=== PATIENT | female | born 1965 | race Caucasian/White ===

== ENCOUNTER → 2019-04-25 | Outpatient (CLI) | payer OTHER ==
--- NOTE | 2019-04-25 15:55 | XR ---
EXAMINATION TYPE: XR knee limited LT DATE OF EXAM: 04/25/2019 CLINICAL HISTORY: Pain. TECHNIQUE: Frontal and lateral views of the left knee are obtained. COMPARISON: None. FINDINGS: There is no acute fracture/dislocation evident in left knee. Mild to moderate tricompartme nt joint space loss with mild patellofemoral compartment spurring. The overlying soft tissue appears unremarkable. IMPRESSION: As above.
--- NOTE | 2019-04-25 15:56 | XR ---
EXAMINATION TYPE: XR lumbosacral spine min 4V DATE OF EXAM: 04/25/2019 CLINICAL HISTORY: Pain. TECHNIQUE: Frontal, lateral, and oblique images of the lumbar spine are obtained. COMPARISON: None FINDINGS: There are 5 lumbar type vertebral bodies identified. The lumbar spine shows slight grade 1 retrolisthesis L4 on L5 without evidence of acute fracture or dislocation. Vertebral body heights a re within normal limits. Mild disc space narrowing L4-L5 level is seen. The oblique images appear w ithin normal limits. Mild to moderate multilevel anterior and lateral spurring. Cholecystectomy clips noted in overlying soft tissue.. IMPRESSION: As above.
== END | disposition home or self-care (01) ==
LOC: RADXRMAIN 14:54
PROVIDERS: ATTEND Family Medicine
DX: M99.73 Connective tissue and disc stenosis of intervertebral foramina of lumbar region (principal); M43.16 Spondylolisthesis, lumbar region; M25.862 Other specified joint disorders, left knee
CPT/HCPCS: 72110

== ENCOUNTER → 2019-08-10 | Outpatient (CLI) | payer BC ==
--- NOTE | 2019-08-10 19:33 | CT ---
EXAMINATION TYPE: CT abdomen pelvis w con DATE OF EXAM: 08/10/2019 COMPARISON: None HISTORY: Right lower quadrant and epigastric pain. CT DLP: 1856 mGycm Automated exposure control for dose reduction was used. CONTRAST: Performed with IV Contrast, patient injected with 100ml mL of Isovue 300. Multiple axial sections were obtained from the diaphragm to the floor the pelvis with oral and intrav enous contrast. Lung bases are clear. There is no pleural effusion. Heart size is normal. There is small hiatal herni a. The remainder of the stomach appears normal. Liver spleen pancreas appear normal. There are clips from cholecystectomy. The bile ducts are not dilated. There is no adrenal mass. There is no evidence of pancreatic mass. There is normal contrast opacification of the kidneys. There is no hydronephrosis. Ureters are not di lated. Bladder distends smoothly. There is no inguinal hernia. There is hysterectomy. There is no mes enteric edema. There is no ascites or free air. Appendix appears normal. There is no sign of a bowel obstruction. Lumbar vertebra have normal alignment. There is narrowing at L4-5 disc with vacuum disc. There is no compression fracture. Bony pelvis is intact. IMPRESSION: Negative CT scan abdomen and pelvis. No evidence of appendicitis.No renal stone or obstruction. Velia l appendix.
== END | disposition home or self-care (01) ==
LOC: RADCTMAIN 16:41
PROVIDERS: ATTEND Physician Assistant
DX: R10.31 Right lower quadrant pain (principal)
CPT/HCPCS: 74177; Q9967

== ENCOUNTER → 2020-06-03 | Outpatient (CLI) | payer BC | END | disposition home or self-care (01) | LOC: LABPAT 07:36 | PROVIDERS: ATTEND Orthopaedic Surgery Orthopaedic Surgery of the Spine | DX: Z01.812 Encounter for preprocedural laboratory examination (principal) | CPT/HCPCS: 87070 ==

== ENCOUNTER 2020-06-12 06:43 | Inpatient (IN) | payer BC ==
[2020-06-07 16:24] VITALS: BMI 33.0
[~2020-06-12 06:43] MED LIST: ceFAZolin 1,000 MG in SODIUM CHLORIDE 0.9% IRRIGATIO 1,000 ML IRRIGATION ONE
[2020-06-12] MEDS ORDERED: LACTATED RINGERS 1,000 ML IV ONE ×3 (07:34→11:47)
[2020-06-12] MEDS ORDERED: ONDANSETRON 4 MG/2 ML VIAL IVP ONE (07:34)
[2020-06-12 07:37] LABS: Glucose,Whole Blood 125 mg/dL (75-99)
[2020-06-12] MEDS ORDERED: ONDANSETRON 4 MG/2 ML VIAL ONE ×2 (07:40→08:00)
[2020-06-12] MEDS ORDERED: HYDROmorphone (PF) 1 MG/ML ONE (08:00)
[2020-06-12] MEDS ORDERED: fentaNYL (PF) 50 MCG/ML 2 ML AMP ONE (08:00)
[2020-06-12] MEDS ORDERED: WATER FOR INJECTION, STERILE 10 ML VIAL IV ONE (08:00)
[2020-06-12] MEDS ORDERED: KETAMINE 10 MG/ML 20 ML VIAL ONE (08:00)
[2020-06-12] MEDS ORDERED: NEOSTIGMINE 1 MG/ML 10 ML VIAL ONE (08:00)
[2020-06-12] MEDS ORDERED: ePHEDrine SULFATE/0.9% NACL/PF 50 MG/5 ML SYRINGE IV ONE (08:00)
[2020-06-12] MEDS ORDERED: PROPOFOL 10 MG/ML 20 ML VIAL IV ONE (08:00)
[2020-06-12] MEDS ORDERED: MIDAZOLAM 2 MG/2 ML VIAL ONE (08:00)
[2020-06-12] MEDS ORDERED: HEPARIN SODIUM,PORCINE 10,000 UNIT/ML 1 ML VIAL ONE (08:00)
[2020-06-12] MEDS ORDERED: SODIUM CHLORIDE 0.9% IRRIG 1,000 ML BTL IRRIGATION ONE (08:00)
[2020-06-12] MEDS ORDERED: ROCURONIUM 10 MG/ML (10 ML VIAL) IV ONE (08:00)
[2020-06-12] MEDS ORDERED: PHENYLEPHRINE-0.9% NACL SYG 1 MG/10 ML SYRINGE ONE (08:00)
[2020-06-12] MEDS ORDERED: SUCCINYLCHOLINE CHLORIDE 100 MG/5 ML SYR IV ONE (08:00)
[2020-06-12] MEDS ORDERED: GLYCOPYRROLATE 0.2 MG/ML 2 ML VIAL ONE (08:00)
[2020-06-12] MEDS ORDERED: GELATIN SPONGE,ABSORB (LARGE) 1 EACH SPONGE TOPICAL ONE (08:54)
[2020-06-12] MEDS ORDERED: THROMBIN (BOVINE) 5,000 UNIT VIAL TOPICAL ONE (08:55)
--- NOTE | 2020-06-12 11:50 | XR ---
EXAM TYPE: LUMBAR SPINE X RAY SERIES COMPARISON: NONE HISTORY: Intraoperative images TECHNIQUE: 2 views are submitted. FINDINGS: Postsurgical changes seen involving the lower lumbar spine which appears in near anatomic alignment. Resolution is limited by intraoperative technique. IMPRESSION: 1. Intraoperative findings.
--- NOTE | 2020-06-12 11:51 | FL ---
EXAMINATION TYPE: FL guidance operating room DATE OF EXAM: 06/12/2020 HISTORY: Fluoroscopy time 21 seconds of fluoroscopy provided. IMPRESSION: 1. Fluoroscopy time.
[2020-06-12] MEDS ORDERED: BENZOCAINE/MENTHOL LOZENG 1 EACH LOZENGE MUCOUS MEM PRN (12:02)
[2020-06-12] MEDS ORDERED: MAGNESIUM HYDROXIDE 2,400 MG/10 ML CUP PO PRN (12:02)
[2020-06-12] MEDS ORDERED: .MORPHINE SULFATE (INJ) 10 MG/ML SYRINGE IVP PRN (12:02)
[2020-06-12] MEDS ORDERED: HYDROcodone/APAP 5-325MG 1 EACH TAB PO PRN ×2 (12:02)
[2020-06-12] MEDS ORDERED: HYDROmorphone 1 MG/ML 1 ML SYRINGE IVP PRN (12:02)
[2020-06-12] MEDS ORDERED: HYDROmorphone 0.5 MG/0.5 ML SYRINGE IVP PRN (12:02)
--- NOTE | 2020-06-12 12:15 | P.OP ---
Date of Procedure: 06/12/20 Preoperative Diagnosis: Degenerative scoliosis lumbar spine, asymmetric disc degeneration L3 4 L4 5, spinal stenosis L3 4 L4 5, low back pain, lower extremity radiculopathy, facet arthrosis Postoperative Diagnosis: Same Anesthesia: GETA Pathology: none sent Condition: stable Disposition: PACU Description of Procedure: DESCRIPTION OF PROCEDURE(S): BRIEF OPERATIVE NOTE Preoperative Diagnosis: Degenerative scoliosis lumbar spine, asymmetric disc degeneration L3 4 L4 5, spinal stenosis L3 4 L4 5, low back pain, lower extremity radiculopathy, facet arthrosis Postoperative Diagnosis: Same Procedure: Laminectomy and decompression L3 [address] navigation aided Minimally invasive Posterior lateral decompression and facet fusion Minimally invasive Transforaminal lumbar interbody fusion for a 360 fusion L3 4 L4 5 Discectomy for decompression L3 4 L4 5 Placement of interbody graft L3 4 L4 5 Use of computer navigation for fusion of L3 on the right Local autogenous bone grafting Aspiration of bone marrow from the vertebral body pedicle Use of bone graft extenders Surgeon: Dr. Rich Staff Research Scientist: Tim CHAVEZ who is present throughout the entire the case persistence during positioning, dissection, exposure, visualization, and all crucial elements of the case as well as closure. Anesthesia: General anesthesia per Dr. Krause Estimated blood loss: Approximately 300 mL, with 130 given back with Cell Saver Complications: None apparent Components implanted: K2M minimally invasive Hoffmeister pedicle screw system withscrews measuring 6.5 mm in diameter to rods one [place] interbody cage with 10 mL of osteo amp bio4 bone graft substitute and 30 mL of the BX bone fibers to supplement the local autogenous bone graft and bone marrow aspirate Disposition: To recovery room in good stable condition. OPERATIVE INDICATIONS The patient has had severe issues at their lower extremity in her lower back over the past several years with significant worsening over the past several months. Over the past few months the patient had pain at her back and her bilateral lower extremity. The patient is having radicular symptoms at her mild lower extremity with weakness. The patient is having significant pain in her back. They are unable to obtain any comfort. We did aggressive conservative treatment with medications therapy and interventional pain management however she was not having any relief. The patient also showed evidence of a degenerative scoliosis with asymmetric disc degeneration with some dynamic instability. The patient has been through conservative treatment. We discussed various treatment options including surgery, and the patient wishes to proceed with surgery We discussed the risk, patient's alternatives and benefits of surgery including but not limited to, risk of bleeding risk of infection, risk of need for further surgery, risk of decreased, loss of motion, muscle function, malunion nonunion, hardware failure, nerve damage, paralysis, heart attack, blindness and . They understood issues with the current pandemic and the possibility of exposure. OPERATIVE SUMMARY After discussing all the risks, patient alternatives and benefits at length, the patient elected to proceed with surgical intervention, signed informed consent, and presented for their procedure. The patient was seen and examined in the preoperative holding area and the surgical site was marked. The patient was given antibiotics and brought to the operating room. The patient was sedated and intubated by anesthesia in standard fashion. The patient was positioned on to the operating room table in a prone position on the appropriate frame which was well-padded and well molded. We were careful to pad any bony prominences and pressure points. We were careful to maintain the p atient's cervical spine and good neutral alignment and position throughout. The patient was prepped and draped in a normal standard fashion. An appropriate timeout and keystone protocol performed. We were able to proceed with the surgery. The local wound area was infiltrated with local anesthetic. Over the right iliac crest I was able to make small stab incisions and establish a guidepin screw fixation to the iliac crest 2. I was able place the computer referencing device over the guidepins to establish an appropriate reference point for the Ziem CT navigation. We then were able to place patient in an appropriate drape and do a navigation spin for visualization and 3-D reconstruction of the lumbar spine. I was able utilize C-arm guidance and navigation to establish appropriate position over the pedicles bilaterally at the appropriate levels . With the appropriate levels confirmed was able to make small stab incisions over the appropriate pedicle sites bilaterally. Utilizing the computer navigation device I was able to establish bony landmarks at the right iliac crest for a bony reference point for the navigation device. I was able to establish a Jamshidi needle over the lateral aspect of the pedicle at L3-L4 and L5 on the bilateral levels and advanced the trocar into the pedicle being careful not to breech superiorly inferiorly medially or laterally using computer navigation device. Position was confirmed regularly with AP and lateral images on C-arm and with the computer navigation device at the appropriate levels bilaterally. I was able to establish the trocar into the pedicle appropriately into the posterior aspect of the vertebral body bilaterally at the appropriate levels. This was done at each of the pedicle positions and each of the vertebrae. At the superior vertebrae of L3 on the right I was able to take approximately 25 mL of bone aspiration for use later in the case to supplement the allograft and autograft bone. I was able place the guidewire into the trocar and into the vertebral body appropriately under C-arm guidance. Dissection was taken down over the wire to the appropriate starting position for the screw placed. The appropriate length screw was chosen, threaded over the guidewire and screwed appropriately into the pedicle and vertebral body under C-arm guidance in excellent alignment and position with good bony purchase. This is done at each of the screw sites at the appropriate levels at L4 5 and L3 4.. With the screws intact I extended the incision to connect the screw hole sites on the most symptomatic side on her left. I dissected down to establish access over the pars and lamina to the base of the spinous process. I was able to expose the facet joint. I would first at L4 5 and then at L3 4. The capsule the facet was taken down and showed some facet arthrosis at the joint. I was able to use a combination of curettes and Kerrison rongeurs and a high-speed drill to take down the facet joint and do a facetectomy. I was able get excellent foraminal decompression and central decompression with undermining across midline to perform a laminectomy centrally and contralaterally. I was able get good central decompression. The ligamentum flavum was taken down to further decompress centrally and at bilateral neural foramen. I was able to expose the disc space and visualize the traversing nerve root. Note was made of some disc protrusion and disc herniation that was abutting the traversing nerve root at the level causing further compression of the nerve root. I was able to establish a annulotomy at the appropriate level protecting soft tissue and neural structures. Note was made of some disc desiccation at the disc, particularly at the L4 5 level with asymmetry at the disc space itself. I performed a complete discectomy with accommodation of curettes and rasps and scrapers. I was able get good endplate preparation at the disc space. I sized for the appropriate size interbody spacer protecting the soft tissue and neural structures. The wound was copiously irrigated and suctioned dry. There is no evidence of any dural tear or leak. I was able to pack the disc space with local autogenous bone graft as well as a small amount of bone graft which was also placed into the interbody cage itself. Protecting the soft tissue structures and neural structures I was able place the interbody cage in good alignment and good position with good fit and fill at the interbody space both at L4 5 and L3 4. Position was confirmed with C-arm guidance. Good hemostasis maintained. There is no evidence of any dural tear or leak. The wound was irrigated and suctioned dry. With the hardware intact, intraoperative C-arm imaging was again taken which showed good alignment and position of the hardware at the appropriate levels. We were then able to measure, contour and place the rods and appropriate hardware bilaterally. I was able to place capcrews, tighten them down, and torque them with the torque screwdriver appropriately. With this intact I was able to place the local autogenous bone graft with additional bone graft enhancer as necessary into the posterior lateral gutters over the decorticated transverse processes and facet joints on the contralateral side. The remainder of the bone graft was placed over the facet joint on the contralateral side after taking down the facet joint capsule. With the bone graft intact, a stable construct, and good decompression at the appropriate levels, we were able to proceed with closure. Good hemostasis was maintained. There is no evidence of dural tear or leak. The fascia was closed for a watertight closure. he subcuticular tissue was closed with absorbable suture. The wound was cleaned and dried and dressed with the appropriate dressing. The drapes were broken down. The patient was gently rolled back onto their hospital bed being careful to maintain their cervical spine and good neutral alignment and position. They were woken up by anesthesia, extubated, and brought to the recovery room in good stable condition. The patient will be admitted to the hospital for appropriate postoperative care, medical management and monitoring. We will continue to follow them closely about the postoperative course.
[2020-06-12] MEDS: HYDROmorphone 0.5 MG/0.5 ML SYRINGE IVP ONE ×2 (12:41→12:55)
[2020-06-12] MEDS: SODIUM CHLORIDE 0.9% 1,000 ML IV SCH ×3 (13:05→18:22)
[2020-06-12] MEDS: ONDANSETRON 4 MG/2 ML VIAL IVP PRN (13:51)
[2020-06-12] MEDS ORDERED: PROCHLORPERAZINE INJ 10 MG/2 ML VIAL IVP PRN (16:08)
[2020-06-12] MEDS: MORPHINE SULFATE 10 MG/ML 1ML VIAL IVP PRN ×2 (20:41→23:38)
[2020-06-12] MEDS ORDERED: HYDROcodone/APAP 5-325MG 1 EACH TAB PO SCH (21:00)
[2020-06-12] MEDS: diazePAM 5 MG TAB PO PRN (22:07)
[2020-06-12] MEDS ORDERED: HYDROcodone/APAP 10-325MG 1 EACH TAB PO PRN (22:18)
[2020-06-12] MEDS: HYDROcodone/APAP 10-325MG 1 EACH TAB PO PRN (22:32)
[2020-06-13] MEDS: MORPHINE SULFATE 10 MG/ML 1ML VIAL IVP PRN ×5 (02:45→22:04)
[2020-06-13] MEDS: HYDROcodone/APAP 10-325MG 1 EACH TAB PO PRN ×3 (04:32→20:25)
[2020-06-13] MEDS: diazePAM 5 MG TAB PO PRN ×2 (05:44→16:29)
[2020-06-13] MEDS: SODIUM CHLORIDE 0.9% 1,000 ML IV SCH (05:52)
[2020-06-13 07:54] LABS: Basophils # (A) 0.1 k/uL (0-0.2); Basophils % (A) 0 %; Eosinophils % (A) 0 %; HCT 34.5 % (34.0-46.0); HGB 11.1 gm/dL (11.4-16.0); Lymphocytes # (A) 1.2 k/uL (1.0-4.8); Lymphocytes % (A) 9 %; MCH 30.5 pg (25.0-35.0); MCHC 32.2 g/dL (31.0-37.0); MCV 94.7 fL (80.0-100.0); Monocytes # (A) 0.8 k/uL (0-1.0); Monocytes % (A) 6 %; Neutrophils # (A) 11.9 k/uL (1.3-7.7); Neutrophils % (A) 84 %; Platelet Count 323 k/uL (150-450); RBC 3.64 m/uL (3.80-5.40); RDW 13.1 % (11.5-15.5); WBC 14.1 k/uL (3.8-10.6)
[2020-06-13] MEDS: PRAVASTATIN SODIUM 20 MG TAB PO SCH (08:17)
[2020-06-13] MEDS: ASPIRIN 81 MG PO SCH (08:17)
[2020-06-13] MEDS: SENNOSIDES-DOCUSATE SODIUM 1 EACH TAB PO SCH (08:17)
[2020-06-13 08:19] LABS: African American GFR (CKD) >90 (>60 ml/min/1.73 sqM); Anion Gap 2 mmol/L; Blood Urea Nitrogen 17 mg/dL (7-17); Calcium 8.7 mg/dL (8.4-10.2); Carbon Dioxide 30 mmol/L (22-30); Chloride 100 mmol/L (98-107); Glucose 138 mg/dL (74-99); Non-African American GFR(CKD) >90 (>60 ml/min/1.73 sqM); Potassium 4.1 mmol/L (3.5-5.1); Sodium 132 mmol/L (137-145)
[2020-06-13] MEDS: ONDANSETRON 4 MG/2 ML VIAL IVP PRN (08:26)
--- NOTE | 2020-06-13 09:23 | P.PN ---
Progress Note - Text Progress Note Date: 06/13/20 Postoperative day #1 Patient is seen and examined today at bedside. The patient has some pain around the surgical site as expected. Pain is being controlled with medication. She still feels a bit nauseous but she has not been throwing up. She has been able to eat some food without vomiting. Physical Exam Afebrile with stable vital signs Abdomen is soft nontender. Chest has good excursion deep and space expiration The incision site is clean dry and intact. No erythema there is no purulence. Extremities have not had neurologic change from prior to surgery. She has sustained dorsal to plantar flexion and EHL intact Calves and thighs were soft nontender without evidence of DVT. Assessment/Plan Postoperative day #1 status post minimally invasive decompression and fusion L3 4 L4 5 for her degenerative scoliosis with stenosis and degenerative disc disease low back pain The patient has been having some nausea but she is starting to tolerate her diet and overall the Patient is progressing as expected from the surgery. We will continue to increase the patient's mobilization with therapy. She needs to start to mobilize further today. The catheter has been removed. We will continue pain control with oral or IV medications. We'll continue to follow patient closely.
[2020-06-14] MEDS: MORPHINE SULFATE 10 MG/ML 1ML VIAL IVP PRN ×2 (01:06→06:32)
[2020-06-14] MEDS: ONDANSETRON 4 MG/2 ML VIAL IVP PRN ×2 (05:01→15:36)
[2020-06-14] MEDS: SODIUM CHLORIDE 0.9% 1,000 ML IV SCH ×3 (07:38→20:16)
[2020-06-14] MEDS: ASPIRIN 81 MG PO SCH (07:59)
[2020-06-14] MEDS: PRAVASTATIN SODIUM 20 MG TAB PO SCH (07:59)
[2020-06-14] MEDS: SENNOSIDES-DOCUSATE SODIUM 1 EACH TAB PO SCH (07:59)
--- NOTE | 2020-06-14 08:49 | P.CONS ---
History of Present Illness - Reason for Consult Consult date: 06/13/20 medical eval - History of Present Illness Rachel Teague is a 55 yo F with PMH of degenerative scoliosis, HTN, HLD who is admitted for decompression and lumbar fusion. She is POD#1 today, reports some pain but overall feeling well. Good appetite, denies fever, chills, chest pain, shortness of breath, numbness or tingling. Review of Systems All systems: negative Constitutional: Denies chills, Denies fever Eyes: denies blurred vision, denies pain Ears, nose, mouth and throat: Denies headache, Denies sore throat Cardiovascular: Denies chest pain, Denies shortness of breath Respiratory: Denies cough Gastrointestinal: Denies abdominal pain, Denies diarrhea, Denies nausea, Denies vomiting Genitourinary: Denies dysuria, Denies hematuria Musculoskeletal: Reports as per HPI, Reports low back pain, Denies myalgias Integumentary: Denies pruritus, Denies rash Neurological: Denies numbness, Denies weakness Psychiatric: Denies anxiety, Denies depression Endocrine: Denies fatigue, Denies weight change Past Medical History Past Medical History: Hyperlipidemia, Hypertension, Osteoarthritis (OA) Additional Past Medical History / Comment(s): chronic back pain,degenerative disc disease,scoliosis,SOB at times,gastritis,diverticulosi,steroids Apr 2020 History of Any Multi-Drug Resistant Organisms: None Reported Past Surgical History: Section, Cholecystectomy, Heart Catheterization, Hysterectomy Additional Past Surgical History / Comment(s): lt achilles tendon heel spur procedure-had cast on developed a wound took a long time to heal,c sect x2 Past Anesthesia/Blood Transfusion Reactions: Previous Problems w/ Anesthesia, Motion Sickness Additional Past Anesthesia/Blood Transfusion Reaction / Comm: nausea with premeds with anesthesia and b/p dropped with colonoscopy,no hx blood transfusion Past Psychological History: No Psychological Hx Reported Smoking Status: Never smoker Past Alcohol Use History: Occasional Past Drug Use History: None Reported - Past Family History Mother Family Medical History: No Reported History Medications and Allergies Home Medications Medication Instructions Recorded Confirmed Type Aspirin 81 mg PO DAILY 06/07/20 06/12/20 History HYDROcodone/APAP 5-325MG [[place] 1 tab PO BID 06/07/20 06/12/20 History 5-325] Lisinopril-Hctz 20-25 mg 1 tab PO QAM 06/07/20 06/12/20 History [Zestoretic 20-25] Nabumetone [Relafen] 750 mg PO BID 06/07/20 06/12/20 History Pravastatin Sodium [Pravachol] 20 mg PO DAILY 06/07/20 06/12/20 History HYDROcodone/APAP 5-325MG [[place] 5] 1 each PO Q6HR PRN #28 tab 06/13/20 Rx Allergies Allergy/AdvReac Type Severity Reaction Status Date / Time adhesive Allergy Rash/Hives Verified 06/12/20 15:00 adhesive tape Allergy Rash/Hives:paper Verified 06/12/20 15:00 tape is ok lidocaine Allergy Rash/Hives Verified 06/12/20 15:00 Physical Exam Vitals: Vital Signs Temp Pulse Resp BP Pulse Ox 06/14/20 00:52 98.5 F 105 H 16 123/64 95 06/14/20 00:00 105 H 16 06/13/20 20:31 100.7 F H 114 H 16 124/77 94 L 06/13/20 20:29 97 16 06/13/20 18:41 100.1 F H 06/13/20 18:08 100.4 F H 06/13/20 14:57 99.9 F H 06/13/20 13:39 97 06/13/20 13:30 100.5 F H 97 14 110/69 92 L 06/13/20 09:01 91 106/67 Intake and Output 06/13/20 06/14/20 06/14/20 22:59 06:59 14:59 Output Total 1730 1050 Balance -1730 -1050 Output: Urine 1730 1050 Other: Voiding Method Bedside Commode Bedside Commode # Voids 1 Gen.: Well-developed, well-nourished white female in no acute distress HEENT: Normocephalic, atraumatic, mucous membranes moist Neck: Supple, no thyromegaly, no JVD CV: Regular rate and rhythm, no murmur Lungs: Normal effort, clear throughout Abdomen: Soft, nontender, nondistended Neuro: Alert and oriented 3, no focal deficit Skin: Warm and dry Results CBC & Chem 7: 06/13/20 07:13 06/13/20 07:13 Assessment and Plan (1) Fusion of lumbar spine Current Visit: Yes Status: Acute Code(s): M43.26 - FUSION OF SPINE, LUMBAR REGION SNOMED Code(s): 712974300 (2) Essential hypertension Current Visit: Yes Status: Acute Code(s): I10 - ESSENTIAL (PRIMARY) HYPERTENSION SNOMED Code(s): 10869427 Plan: 1. Degenerative scoliosis. Decompression and fusion of lumbar spine. Management per primary. Pain control 2. Essential hypertension. She is normotensive today. Continue to hold antihypertensives
[2020-06-14] MEDS: HYDROcodone/APAP 10-325MG 1 EACH TAB PO PRN ×3 (09:40→21:58)
--- NOTE | 2020-06-14 10:24 | P.PN ---
Subjective Progress Note Date: 06/14/20 This patient is a 55-year-old female who is status-post minimally invasive decompression and fusion L3-4 L4-5. Today is post-operative day #2. The patient is examined bedside. Patient states she is having some issues with pain control and mobilization. She states she was out of the bed ambulating yesterday, although she has not been out of the bed in a few hours due to her pain. She states her pain is well controlled if she is laying in bed. Patient is tolerating her diet well. Her nausea has improved compared to yesterday. She is urinating freely. She has not yet had a bowel movement postoperatively, although she has denies abdominal pain. She denies numbness or tingling of the bilateral lower extremities. She denies chest pain, shortness breath, nausea, vomiting, fevers, chills. Overall she feels well today. Vital signs are stable. The patient was febrile yesterday, although she is currently afebrile. Objective - Vital Signs Vital signs: Vital Signs Temp 98.9 F 06/14/20 08:10 Pulse 104 H 06/14/20 08:10 Resp 16 06/14/20 08:10 BP 125/79 06/14/20 08:10 Pulse Ox 94 L 06/14/20 08:10 Intake & Output 06/13/20 06/14/20 06/14/20 18:59 06:59 18:59 Intake Total 650 Output Total 2830 1500 Balance -2180 -1500 Intake: Oral 650 Output: Urine 2830 1500 Uretheral (Oliva) 1500 Other: Voiding Method Bedside Commode Bedside Commode # Voids 1 - Exam Vital signs stable, patient is currently afebrile. On examination, the patient is lying in bed in no apparent distress. She is alert and oriented 3. On inspection of the low back, there are clean, dry, intact Optifoam dressings in place. There is no drainage or bleeding through the dressings. Motor and sensory function are intact of the bilateral lower extremities. Good strength and range of motion of the bilateral ankles. Bilateral lower extremit ies are warm and well perfused with brisk capillary distally. Bilateral calves are soft and nontender to palpation, lower extremity compression cuffs in place. No signs of DVT. - Labs CBC & Chem 7: 06/13/20 07:13 06/13/20 07:13 Assessment and Plan Assessment: Status-post minimally invasive decompression and fusion L3-4 L4-5. Post- operative day #2. Plan: - Patient may ambulate and increase mobilization as tolerated. Continue physical therapy. - Leave dressings in place. She may shower over the waterproof dressings. No soaking. - Continue pain management. Decrease use of IV morphine as tolerated. - Discussed discharge plan with the patient. We will attempt to achieve adequate pain control on oral medications, and plan for discharge home tomorrow, pending medical clearance.
[2020-06-14] MEDS: diazePAM 5 MG TAB PO PRN ×2 (13:17→20:10)
[2020-06-15] MEDS: HYDROcodone/APAP 10-325MG 1 EACH TAB PO PRN ×4 (03:46→23:45)
[2020-06-15] MEDS: diazePAM 5 MG TAB PO PRN (07:44)
[2020-06-15] MEDS: SENNOSIDES-DOCUSATE SODIUM 1 EACH TAB PO SCH (09:13)
[2020-06-15] MEDS: ASPIRIN 81 MG PO SCH (09:13)
[2020-06-15] MEDS: PRAVASTATIN SODIUM 20 MG TAB PO SCH (09:13)
[2020-06-15 09:38] VITALS: RESP 16
--- NOTE | 2020-06-15 11:18 | P.PN ---
Subjective Progress Note Date: 06/15/20 This patient is a 55-year-old female who is status-post minimally invasive decompression and fusion L3-4 L4-5. Today is post-operative day #3 and patient is seen and evaluated at bedside today. Patient states that she has some abdominal discomfort today and has not passed gas or had a bowel movement yet. Patient states that her pain is well- controlled today. Objective - Vital Signs Vital signs: Vital Signs Temp 97.5 F L 06/15/20 08:54 Pulse 92 06/15/20 08:54 Resp 16 06/15/20 08:54 BP 116/75 06/15/20 08:54 Pulse Ox 96 06/15/20 08:54 Intake & Output 06/14/20 06/15/20 06/15/20 18:59 06:59 18:59 Intake Total 980 Output Total 300 Balance 980 -300 Intake: Intake, IV Titration 200 Amount Sodium Chloride 0.9% 1, 200 000 ml @ 75 mls/hr IV . [id number] MANUEL Rx#:[id number] Oral 780 Output: Urine 300 Other: Voiding Method Bedside Commode Toilet Toilet # Voids 2 1 1 - Exam Vital signs are stable. Patient is afebrile. On exam, the patient is lying in bed in no acute distress. Patinet is alert and oriented 3. Dressings are clean, dry and intact. Patient has full range of motion of bilat eral lower extremities. Neurovascular status and circulatory status are intact. - Labs CBC & Chem 7: 06/13/20 07:13 06/13/20 07:13 Assessment and Plan Assessment: Status-post minimally invasive decompression and fusion L3-4 L4-5. Plan: 1. Patient may weight-bear as tolerated. 2. Continue routine postoperative care and pain control. 3. Continue mobilization with physical therapy. 4. Patient may discharge home later today if she has a bowel movement. Per nursing, the patient received milk of mag earlier today.
[2020-06-15] MEDS: SODIUM CHLORIDE 0.9% 1,000 ML IV SCH (20:48)
[2020-06-16] MEDS: HYDROcodone/APAP 10-325MG 1 EACH TAB PO PRN ×2 (05:57→11:54)
[2020-06-16] MEDS: PRAVASTATIN SODIUM 20 MG TAB PO SCH (07:58)
[2020-06-16] MEDS: SENNOSIDES-DOCUSATE SODIUM 1 EACH TAB PO SCH (07:58)
[2020-06-16] MEDS: ASPIRIN 81 MG PO SCH (07:58)
--- NOTE | 2020-06-16 09:20 | P.DS ---
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 Patient did not find any relief with conservative management. After discussion and consideration, patient elected to proceed with surgical treatment of minimally invasive decompression and fusion L3-4 L4-5. The patient is admitted to [facility] on 06/12/2020 and minimally invasive decompression and fusion L3-4 L4-5 is performed on 06/12/[address] Rich. The procedure is performed without complication or sequele. Labs and vital signs are stable on day of discharge. Patient has been able to pass flatus and denies any abdominal pain or discomfort. On day of discharge dressings are clean, dry and intact. Patient has good range of motion of bilateral lower extremities and is able to ambulate. Calves are soft and nontender to palpation. Neurovascular status and circulatory status are intact. Patient is in good condition for discharge home. Plan - Discharge Summary Discharge Rx Participant: No New Discharge Prescriptions: New HYDROcodone/APAP 5-325MG [[place] 5] 1 each PO Q6HR PRN #28 tab PRN Reason: Pain Sennosides [Senokot] 2 tab PO DAILY PRN #60 tablet PRN Reason: Constipation No Action Aspirin 81 mg PO DAILY Nabumetone [Relafen] 750 mg PO BID HYDROcodone/APAP 5-325MG [[place] 5-325] 1 tab PO BID Pravastatin Sodium [Pravachol] 20 mg PO DAILY Lisinopril-Hctz 20-25 mg [Zestoretic 20-25] 1 tab PO QAM Discharge Medication List Aspirin 81 mg PO DAILY 06/07/20 [History] HYDROcodone/APAP 5-325MG [[place] 5-325] 1 tab PO BID 06/07/20 [History] Lisinopril-Hctz 20-25 mg [Zestoretic 20-25] 1 tab PO QAM 06/07/20 [History] Nabumetone [Relafen] 750 mg PO BID 06/07/20 [History] Pravastatin Sodium [Pravachol] 20 mg PO DAILY 06/07/20 [History] HYDROcodone/APAP 5-325MG [[place] 5] 1 each PO Q6HR PRN #28 tab 06/13/20 [Rx] Sennosides [Senokot] 2 tab PO DAILY PRN #60 tablet 06/16/20 [Rx] Follow up Appointment(s)/Referral(s): Jose Rich DO [Doctor of Osteopathic Medicine] - 06/28/20 11:00 am Activity/Diet/Wound Care/Special Instructions: Keep site clean. May shower with waterproof Tegaderm intact. Do not soak in a tub. After 72 hours postoperatively, patient May remove dressing and then may shower with area uncovered. Leave Steri-Strips intact and allow them to fray off on their own. May ambulate as tolerated. Avoid heavy or rigorous activity. No repetitive bending twisting or lifting. No overhead work. Discharge Disposition: HOME SELF-CARE
[2020-06-16 09:27] VITALS: BP 120/77; PULSE 86; TEMP 98.2
== END 2020-06-16 12:14 | disposition home or self-care (01) | DRG 455 ==
LOC: 2ORMAIN 06:43 → 6PED 12:08
PROVIDERS: ADMIT Orthopaedic Surgery Orthopaedic Surgery of the Spine; ATTEND Orthopaedic Surgery Orthopaedic Surgery of the Spine
PROC: 0SG1071 Fusion of 2 or more Lumbar Vertebral Joints with Autologous Tissue Substitute, Posterior Approach, Posterior Column, Open Approach (ICD-10-PCS; 2020-06-12)
PROC: 0ST20ZZ Resection of Lumbar Vertebral Disc, Open Approach (ICD-10-PCS; 2020-06-12)
PROC: 01NB0ZZ Release Lumbar Nerve, Open Approach (ICD-10-PCS; 2020-06-12)
PROC: 8E0WXBF Computer Assisted Procedure of Trunk Region, With Fluoroscopy (ICD-10-PCS; 2020-06-12)
PROC: 0SG10AJ Fusion of 2 or more Lumbar Vertebral Joints with Interbody Fusion Device, Posterior Approach, Anterior Column, Open Approach (ICD-10-PCS; principal; 2020-06-12 08:00)
DX: M41.86 Other forms of scoliosis, lumbar region (principal); M48.061 Spinal stenosis, lumbar region without neurogenic claudication; M51.16 Intervertebral disc disorders with radiculopathy, lumbar region; M47.26 Other spondylosis with radiculopathy, lumbar region; I10 Essential (primary) hypertension; E78.5 Hyperlipidemia, unspecified; G89.29 Other chronic pain; K57.90 Diverticulosis of intestine, part unspecified, without perforation or abscess without bleeding; R11.0 Nausea; Z79.1 Long term (current) use of non-steroidal anti-inflammatories (NSAID); Z79.899 Other long term (current) drug therapy; Z79.82 Long term (current) use of aspirin; Z79.891 Long term (current) use of opiate analgesic; Z90.49 Acquired absence of other specified parts of digestive tract; Z90.710 Acquired absence of both cervix and uterus; Z98.890 Other specified postprocedural states; Z88.8 Allergy status to other drugs, medicaments and biological substances; Z91.048 Other nonmedicinal substance allergy status
CPT/HCPCS: 36415; 72100; 80048; 85025; 86850; 86891; 86900; 86901

== ENCOUNTER → 2020-11-06 | Outpatient (CLI) | payer BC | END | disposition home or self-care (01) | LOC: LABPAT 07:50 | PROVIDERS: ATTEND Orthopaedic Surgery | DX: Z01.812 Encounter for preprocedural laboratory examination (principal) | CPT/HCPCS: 87070 ==

== ENCOUNTER 2020-11-18 13:43 | Observation (INO) | payer BC ==
[2020-11-11 14:48] VITALS: BMI 32.3
--- NOTE | 2020-11-17 11:37 | HP ---
HISTORY AND PHYSICAL DATE OF SURGERY: 11/18/2020 HISTORY OF PRESENT ILLNESS: Vy Teague is a 55-year-old patient seen with symptomatic left knee osteoarthritis. We discussed options for treatment. She elected to proceed with left total knee arthroplasty. Consent was obtained. Medical clearance was provided by Dr. Jory Boone's office. PAST MEDICAL HISTORY: Hypertension, hyperlipidemia. PAST SURGICAL HISTORY: section, cholecystectomy, foot surgery, hysterectomy. DAILY MEDICATIONS: Lisinopril, pravastatin, famotidine, vitamins. ALLERGIES: ADHESIVES and LIDOCAINE. SOCIAL HISTORY: She denies tobacco use. PHYSICAL EXAMINATION: Evaluation of the left knee: Range of motion is -2 to 115. Mild effusion. Tenderness medial joint line. Crepitus along the medial patellofemoral compartments with range of motion. Pain with patellofemoral compression. Ligaments stable. Hip rotation without pain. Distal neurovascular exam is intact. RADIOGRAPHS: Left knee radiographs reveal severe osteoarthritic changes. IMPRESSION: 1. Left knee osteoarthritis. 2. Hypertension. 3. Hyperlipidemia. PLAN: Left total knee arthroplasty. MMODL / IJN: [id number] /
[~2020-11-18 13:43] MED LIST changes: +ACETAMINOPHEN TAB 500 MG TAB PO PRN; +DEXAMETHASONE SOD PHOSPHATE 4 MG/ML 1 ML VIAL IV ONE; +HYDROmorphone 0.5 MG/0.5 ML SYRINGE IVP PRN; +MELOXICAM 7.5 MG TAB PO PRN; +MIDAZOLAM 2 MG/2 ML VIAL IV PRN; +ONDANSETRON 4 MG/2 ML VIAL IVP ONE; +ROPIVACAINE/EPI/CLONIDINE/KET 50 ML SYRINGE MISCELLANE PRN; +TRANEXAMIC ACID 1,000 MG in SODIUM CHLORIDE 0.9% 100 ML IVPB PRN; -ceFAZolin 1,000 MG in SODIUM CHLORIDE 0.9% IRRIGATIO 1,000 ML IRRIGATION ONE
[2020-11-18] MEDS: LACTATED RINGERS 1,000 ML IV SCH (14:13)
[2020-11-18] MEDS ORDERED: MIDAZOLAM 2 MG/2 ML VIAL IVP ONE (14:37)
[2020-11-18] MEDS ORDERED: MIDAZOLAM 2 MG/2 ML VIAL ONE (14:52)
[2020-11-18] MEDS ORDERED: HYDROmorphone (PF) 1 MG/ML ONE (14:52)
[2020-11-18] MEDS ORDERED: fentaNYL (PF) 50 MCG/ML 2 ML AMP ONE (14:52)
[2020-11-18] MEDS ORDERED: TRANEXAMIC ACID 1,000 MG/10 ML VIAL ONE (14:52)
[2020-11-18] MEDS ORDERED: PROPOFOL 10 MG/ML 20 ML VIAL IV ONE (14:52)
[2020-11-18] MEDS ORDERED: ROPIVACAINE 5 MG/ML 30 ML VIAL ONE (14:52)
[2020-11-18] MEDS ORDERED: SODIUM CHLORIDE 0.9% 100 ML BAG ONE (14:52)
[2020-11-18] MEDS ORDERED: PHENYLEPHRINE-0.9% NACL SYG 1,000 MCG/10 ML SYRINGE ONE (14:52)
[2020-11-18] MEDS ORDERED: MAGNESIUM HYDROXIDE 2,400 MG/10 ML CUP PO PRN (15:15)
[2020-11-18] MEDS ORDERED: NALOXONE 0.4 MG/ML 1 ML VIAL IV PRN (15:15)
[2020-11-18] MEDS ORDERED: HYDROcodone/APAP 7.5-325MG 1 EACH TAB PO PRN (15:15)
[2020-11-18] MEDS ORDERED: traMADol 50 MG TAB PO PRN (15:15)
[2020-11-18] MEDS ORDERED: HYDROmorphone 0.5 MG/0.5 ML SYRINGE IVP PRN (15:15)
[2020-11-18] MEDS ORDERED: ONDANSETRON 4 MG/2 ML VIAL IVP PRN (15:15)
[2020-11-18] MEDS ORDERED: HYDROmorphone 1 MG/ML 1 ML SYRINGE IVP PRN (15:15)
[2020-11-18] MEDS ORDERED: ACETAMINOPHEN TAB 325 MG TAB PO PRN (15:15)
[2020-11-18] MEDS ORDERED: ROPIVACAINE 0.2%-NS ON-Q PUMP 1,090 MG, EMPTY PAIN BALL 1 EACH MISCELLANE PRN (15:47)
--- NOTE | 2020-11-18 15:48 | P.ANPRN ---
Procedure Note - Anesthesia - Nerve Block Performed Left Adductor Canal Infusion Time Out Performed: Yes Date of Procedure: 11/18/20 Procedure Start Time: 14:36 Procedure Stop Time: 14:40 Location of Patient: PreOp Indication: Acute Post-Operative Pain, Analgesia, Requested by Surgeon Sedation Type: Sedate with meaningful contact maintained Preparation: Sterile Prep Position: Supine Catheter: Indwelling Needle Types: Pajunk Needle Gauge: 21 Ultrasound used to visualize needle placement: Yes Ultrasound used to observe medication spread: Yes Injectate: 0.5% Ropivacaine (see comment for volume) Blood Aspirated: No Pain Paresthesia on Injection Noted: No Resistance on Injection: Normal Image Stored and Saved: Yes Events: Uneventful and Well Tolerated
--- NOTE | 2020-11-18 15:49 | P.ANPRN ---
Procedure Note - Anesthesia - Nerve Block Performed Left iPack Single Time Out Performed: Yes (T) Date of Procedure: 11/18/20 Procedure Start Time: 14:41 Procedure Stop Time: 14:43 Location of Patient: PreOp Indication: Acute Post-Operative Pain, Analgesia, Requested by Surgeon Sedation Type: Sedate with meaningful contact maintained Preparation: Sterile Prep Position: Supine Needle Types: Pajunk Needle Gauge: 21 Ultrasound used to visualize needle placement: Yes Ultrasound used to observe medication spread: Yes Injectate: 0.5% Ropivacaine (see comment for volume) (10ML) Blood Aspirated: No Pain Paresthesia on Injection Noted: No Resistance on Injection: Normal Image Stored and Saved: Yes Events: Uneventful and Well Tolerated
--- NOTE | 2020-11-18 16:50 | P.OP ---
Date of Procedure: 11/18/20 Preoperative Diagnosis: Left knee osteoarthritis Postoperative Diagnosis: Left knee osteoarthritis Procedure(s) Performed: Left total knee arthroplasty Implants: 1. Depuy attune size 6 narrow left cruciate retaining cemented femur 2. Depuy attune size 6 fixed-bearing cemented tibial baseplate 3. Depuy attune size 6 cruciate retaining fixed bearing 5 mm polyethylene tibial insert 4. Depuy attune 38 mm all polyethylene cemented patella Anesthesia: regional (Adductor canal catheter, I-pack block), spinal Surgeon: Juan Nettles Brick Siding Applicator #1: Iglesia Vargas Estimated Blood Loss (ml): 45 Pathology: other (bone) Condition: stable Disposition: PACU Indications for Procedure: 55 year old patient seen with symptomatic left knee osteoarthritis. After treatment options were discussed with him, he elected to proceed with total knee arthroplasty. Operative Findings: See description of procedure Description of Procedure: Patient was taken to the operative suite after having an adductor canal catheter placed by the department of anesthesia. Patient underwent a spinal anesthetic by the department of anesthesia. Patient was given preoperative IV intake antibiotics and TXA. A well-padded tourniquet was placed about the left lower extremity. The lower extremity was then prepped and draped in the normal sterile orthopedic fashion. The extremity was elevated, a tourniquet was insufflated to 300. A standard anterior incision was made sharply through skin. Dissection was taken down through the subcutaneous soft tissues down to the extensor mechanism. A medial arthrotomy was performed, patella was everted and knee was flexed. There was advanced osteoarthritis noted. I introduced my distal intramedullary femoral drill. I then introduced the distal femoral cutting jig. Iglesia CHAVEZ secured the cutting jig with 2 pins. I held retractors in position while Iglesia CHAVEZ performed the distal femoral resection through the guide area we now removed her distal femoral cutting guide. We now placed our 4-in-1 femoral cutting block and positioned and it was secured with 2 pins by Iglesia CHAVEZ while I held the block in position. The distal femoral finishing was now completed. A proximal tibial cutting guide was positioned. I held the guide in the appropriate position with both hands while Iglesia CHAVEZ inserted stabilizing pins into the guide. Proximal tibial cut was made. We now placed a trial femoral component into position, along with an appropriate size tibial tray and insert. We now took the knee through range of motion and had full extension good flexion and good overall soft tissue balance noted. The patella was everted and stabilized with 2 towel clips held by Iglesia CHAVEZ while I performed a flush with patellar quad tendon utilizing a fresh sawblade. We templated the patella, appropriate drill holes were made. An appropriate trial patella was positioned, knee was taken through full range of motion with the patella tracking very nicely. The trial patella was removed. Drill holes were made through the femoral component. All trial components were removed after marking off the appropriate rotation of the tibia. Retractors were now positioned along the proximal tibia. An appropriate keel punch was made with the appropriate size tibial guide by myself on Iglesia CHAVEZ assisted by holding retractors. At this point appropriate size implants were chosen and opened. The joint was irrigated copiously with pulse lavage mechanical irrigation. The posterior capsule was infiltrated with local analgesic. The w ound was irrigated with pulse lavage mechanical irrigation. We mixed antibiotic methylmethacrylate. We placed the knee into flexion. We placed multiple retractors assisted by Iglesia CHAVEZ to expose the proximal tibia. Once the methyl methacrylate was ready, the tibial component was cemented into place removing any excess methylmethacrylate form by both myself and Iglesia CHAVEZ. The femoral component was cemented into place removing the removing any excess methylmethacrylate performed by both myself and Iglesia CHAVEZ. We then inserted the appropriate size polyethylene tibial insert. We made sure that it was locked into position. We took the knee into full extension, and then back in a flexion making sure we had removed any excess methylmethacrylate. The patellar component was then cemented down and secured with clamp. Excess methylmethacrylate removed. We kept the knee in full extension, patellar clamp in position until methylmethacrylate had hardened. Once it had hardened the patellar clamp was removed. The knee was taken through full range of motion. The patella tracked nicely. There was good soft tissue balancing. The tourniquet was now released. Additional hemostasis was achieved via electrocautery. A second gram of TXA was given. The wound again was irrigated with pulse lavage mechanical irrigation. The superficial soft tissues were infiltrated local analgesic. The extensor mechanism was repaired with Vicryl. We checked the repair with range of motion and it was stable. The subcutaneous soft tissues were repaired with Vicryl in layers. The skin was approximated with pernio/Dermabond. Sterile dressings were applied followed by loose web roll and Floyd bandage. The patient was transferred to a bed, and taken to recovery in stable and satisfactory condition. Iglesia CHAVEZ assisted with this complex procedure.
[2020-11-18 17:18] VITALS: RESP 16
--- NOTE | 2020-11-18 17:45 | XR ---
EXAMINATION TYPE: XR knee limited LT DATE OF EXAM: 11/18/2020 COMPARISON: 04/25/2019 HISTORY: Postop TECHNIQUE: 2 views FINDINGS: There is left knee prosthesis. Components are in anatomic position. There are anterior skin geovanna. IMPRESSION: No complicating process seen.
[2020-11-18] MEDS: HYDROcodone/APAP 7.5-325MG 1 EACH TAB PO PRN (19:17)
[2020-11-18] MEDS: ENOXAPARIN 30 MG/0.3 ML SYRINGE SQ SCH (20:46)
[2020-11-18] MEDS ORDERED: SENNOSIDES-DOCUSATE SODIUM 1 EACH TAB PO SCH (21:00)
[2020-11-19] MEDS: HYDROcodone/APAP 7.5-325MG 1 EACH TAB PO PRN ×3 (01:40→13:44)
[2020-11-19 05:23] VITALS: BP 95/59; PULSE 66; TEMP 98.5
[2020-11-19] MEDS: LACTATED RINGERS 1,000 ML IV SCH (05:37)
--- NOTE | 2020-11-19 06:16 | P.PN ---
Progress Note - Text Progress Note Date: 11/19/20 adductor canal rounds, POD 1 L TKR. doing well, mild posterior knee pain. VAS 3/10, able to stand and ambulate. pump in place. site clean and dry, patient resting this morning. 1 dose of hydromorphone 0.5mg IV, 1 dose of tramadol overnight. Anterior knee does not have pain, pain is mostly lateral knee and posterior. There is no obvious swelling or erythema outside normal post surgical changes. will be d/c home today with catheter.
[2020-11-19 06:41] LABS: Basophils % (A) 0 %; Eosinophils % (A) 0 %; HCT 33.3 % (34.0-46.0); HGB 11.8 gm/dL (11.4-16.0); Lymphocytes # (A) 1.8 k/uL (1.0-4.8); Lymphocytes % (A) 15 %; MCH 31.1 pg (25.0-35.0); MCHC 35.3 g/dL (31.0-37.0); MCV 88.1 fL (80.0-100.0); Monocytes # (A) 0.6 k/uL (0-1.0); Monocytes % (A) 5 %; Neutrophils # (A) 9.6 k/uL (1.3-7.7); Neutrophils % (A) 78 %; Platelet Count 305 k/uL (150-450); RBC 3.78 m/uL (3.80-5.40); RDW 12.7 % (11.5-15.5); WBC 12.2 k/uL (3.8-10.6)
[2020-11-19] MEDS: ENOXAPARIN 30 MG/0.3 ML SYRINGE SQ SCH (08:38)
--- NOTE | 2020-11-19 13:13 | P.DS ---
Providers Date of admission: 11/19/20 12:28 Expected date of discharge: 11/19/20 Attending physician: Juan Nettles Consults: 11/18/20 15:21 Consult Physician Routine Consulting Provider: Phu Levy Reason/Comments: Medical Management Do you want consulting provider notified?: Yes Primary care physician: Chelsi Levy [facility] Course: Date of admission: 11/18/2020 Date of discharge: 11/19/2020 Admission diagnosis: Left knee osteoarthritis Discharge diagnosis: Same Attending physician: Dr. Nettles Surgical procedures: Left total knee arthroplasty Brief history: Patient is a 55-year-old female with a history of progressive primary left knee osteoarthritis. At this point patient has failed conservative treatment measures and has opted to proceed with a elective left total knee arthroplasty. Hospital course: Details of patient's surgery can be found in operative report. Patient tolerated the procedure well and was subsequently transported to orthopedic floor. Patient's orthopeidc and medical care was provided daily. Patient had daily laboratory tests performed for evaluation of overall blood counts. Patient had daily physical therapy to include strengthening range of motion as well as education with walker ambulation. Patient was treated with Lovenox for their postoperative DVT prophylaxis during their inpatient stay. Patient was noted to have a relatively uneventful postoperative course. Patient reported satisfactory pain control with oral pain medications by postoperative day 1. Patient showed satisfactory progress with physical therapy. Patient moved steadily through the program and had no difficulty meeting the goals by postoperative day 1. Given patient's otherwise satisfactory course and having met physical therapy goals, plan is to discharge patient home on postoperative day 1. Discharge condition/disposition: Patient will be discharged home in stable condition. Discharge medications: Instructions are given on resumption of patient's normal daily medications per primary care recommendation, in addition patient will be prescribed [place] 7.5 mg/325 mg, Colace 100 mg. Patient has aspirin at home that she says she will take. Take aspirin, 81 mg twice per day for 30 days Discharge instructions: 1. Wound care and infection precautions, keep incision dry and covered while showering, no lotions, creams, moisturizers. No soaking, tubs, pools, hottubs. Do not scrub over the incision. 2. Weight-bear as tolerated with walker / cane until follow-up. 3. Ice and elevate when necessary. Do not exceed 20 minutes per hour with ice pack. 4. Utilize compression sleeve until seen at first follow up appointment. 5. Visiting nursing care. 6. Home physical therapy including home CPM. 7. Pain meds and anticoagulants per prescription. 8. Pain medication has potential to cause constipation. Increase oral fluid and fiber intake. Contact primary care provider if you have not had a bowel movement within 48 hours after discharge 9. No anti-inflammatory medication until discussed at first post operative visit, this including Motrin, Aleve, Mobic, Diclofenac. 10. Follow up in office at 2 weeks postop with Gildardo Underwood PA-C / Iglesia Vargas PA-C 11. Follow up with your primary care doctor 7-10 days after discharge. 12. Contact [facility] with any questions, . Keep incision covered with nonstick dressing and paper tape for first 7-10 days. Cover dressing with Saran wrap or plastic bag while showering. After 7-10 days dressing may be removed. Assessment: Left knee osteoarthritis Procedures: Left total knee arthroplasty Patient Condition at Discharge: Good Plan - Discharge Summary Discharge Rx Participant: Yes New Discharge Prescriptions: New HYDROcodone/APAP 7.5-325MG [[place] 7.5] 1 each PO Q6HR PRN #36 tab PRN Reason: Pain Docusate [Colace] 100 mg PO DAILY #30 capsule No Action Aspirin 81 mg PO DAILY Nabumetone [Relafen] 750 mg PO BID Pravastatin Sodium [Pravachol] 20 mg PO DAILY Lisinopril-Hctz 20-25 mg [Zestoretic 20-25] 1 tab PO QAM Cholecalciferol [Vitamin D3 (25 Mcg = 1000 Iu)] 50 mcg PO DAILY Cyanocobalamin (Vitamin B-12) [Vitamin B-12] 1,000 mcg PO DAILY Multivitamins, Thera [Multivitamin (formulary)] 1 tab PO DAILY Discharge Medication List Aspirin 81 mg PO DAILY 06/07/20 [History] Lisinopril-Hctz 20-25 mg [Zestoretic 20-25] 1 tab PO QAM 06/07/20 [History] Nabumetone [Relafen] 750 mg PO BID 06/07/20 [History] Pravastatin Sodium [Pravachol] 20 mg PO DAILY 06/07/20 [History] Cholecalciferol [Vitamin D3 (25 Mcg = 1000 Iu)] 50 mcg PO DAILY 11/11/20 [History] Cyanocobalamin (Vitamin B-12) [Vitamin B-12] 1,000 mcg PO DAILY 11/11/20 [History] Multivitamins, Thera [Multivitamin (formulary)] 1 tab PO DAILY 11/11/20 [History] Docusate [Colace] 100 mg PO DAILY #30 capsule 11/19/20 [Rx] HYDROcodone/APAP 7.5-325MG [[place] 7.5] 1 each PO Q6HR PRN #36 tab 11/19/20 [Rx] Follow up Appointment(s)/Referral(s): Desirae [facility], [NON-STAFF] - 1 Week Arthur Underwood PAC [PHYSICIAN AREA SALES MANAGER] - 2 Weeks Patient Instructions/Handouts: Knee Replacement (GEN) Activity/Diet/Wound Care/Special Instructions: Orthopedic Discharge Instructions: 1. Wound care and infection precautions, keep incision dry and covered while showering, no lotions, creams, moisturizers. No soaking, pools, hot tubs. Do not scrub over incision. 2. Weight-bear as tolerated with walker / cane until follow-up. 3. Ice and elevate when necessary. Do not exceed 20 minutes per hour with ice pack. 4. Utilize compression sleeve until seen at first follow up appointment. 5. Pain meds and anticoagulants per prescription. 6. Pain medication has potential to cause constipation. Increase oral fluid and fiber intake. Contact primary care provider if you have not had a bowel movement within 48 hours after discharge. 7. No anti-inflammatory medication until discussed at first post operative visit, this including Motrin, Aleve, Mobic, Diclofenac. 8. Follow up in office at 2 weeks postop with Gildardo Underwood PA-C / Iglesia Vargas PA-C 9. Follow up with your primary care doctor 7-10 days after discharge. 10. Contact [facility] with any questions, . Keep dressing on for 7-10 days. While showering cover dressing with Saran wrap or plastic bag. Dressing may be removed after 7-10 days Take aspirin, 81 mg 2 times per day for 30 days Discharge Disposition: HOME WITH HOME HEALTH SERVICES
--- NOTE | 2020-11-19 13:59 | P.PN ---
Subjective Progress Note Date: 11/19/20 Principal diagnosis: Left knee osteoarthritis Upon entering room patient was sitting up in chair elevating, icing knee. Patient says she was up with physical therapy earlier this morning. She rates pain 6 or 7 out of 10. She denies any fever, chest pain, shortness of breath, h eadache. Patient did mention while she was up with physical therapy at she started to sweat, but she says this happens to her sometimes, but she is not sure why. Patient denies any fatigue. Blood work came back normal. Patient says she would like to go home Objective - Vital Signs Vital signs: Vital Signs Temp 98.5 F 11/19/20 04:31 Pulse 66 11/19/20 04:31 Resp 16 11/18/20 17:45 BP 95/59 11/19/20 04:31 Pulse Ox 97 11/19/20 04:31 Intake & Output 11/18/20 11/19/20 11/19/20 18:59 06:59 18:59 Intake Total 1550 430 Output Total 45 Balance 1505 430 Weight 102 kg Intake: IV 1550 Intake, IV Titration 230 Amount Lactated Ringers 1,000 ml 180 @ 20 mls/hr IV .Q24H MANUEL Rx#:[id number] ceFAZolin 2 gm In Sodium 50 Chloride 0.9% 50 ml @ 100 mls/hr IVPB Q8H MANUEL Rx#: [id number] Oral 200 Output: Estimated Blood Loss 45 Other: Voiding Method Toilet # Voids 1 - Exam : Incision is clean, dry, and intact. The non-stick dressings and paper tape is in good condition. There is minimal soft tissue swelling and ecchymosis surrounding the medial and lateral aspects of the incision. Calf is soft, no tenderness with palpation. Plantar flexion, dorsiflexion, EHL, FHL are intact. Sensory exam to light touch throughout the extremity is intact, dorsal pedis pulses 2+. - Labs CBC & Chem 7: 11/19/20 05:31 Labs: Abnormal Lab Results - Last 24 Hours (Table) 11/19/20 Range/Units 05:31 WBC 12.2 H (3.8-10.6) k/uL RBC 3.78 L (3.80-5.40) m/uL Hct 33.3 L (34.0-46.0) % Neutrophils # 9.6 H (1.3-7.7) k/uL Assessment and Plan Assessment: Left knee osteoarthritis Plan: Assessment: Postoperative day 1 status post left total knee arthroplasty Plan: 1. Continue with medical management. 2. Pain management - [place] 7.5 mg/325 mg. Stool softener as needed. 3. Continue with physical therapy, including gait/stair training. 4. DVT prophylaxis - Lovenox in the hospital. Aspirin 81 mg twice a day for 30 days 5. Discharge planning. 6. Anticipated discharge today, 11/19/2020 Time with Patient: Less than 30
== END 2020-11-19 14:37 | disposition home health service (06) ==
LOC: OR 13:43 → 5NMEDONC 16:53 → OR 11-19 12:28
PROVIDERS: ADMIT Orthopaedic Surgery; ATTEND Orthopaedic Surgery
DX: M17.12 Unilateral primary osteoarthritis, left knee (principal); I10 Essential (primary) hypertension; E78.5 Hyperlipidemia, unspecified; I25.10 Atherosclerotic heart disease of native coronary artery without angina pectoris; E78.2 Mixed hyperlipidemia; Z90.49 Acquired absence of other specified parts of digestive tract; Z90.710 Acquired absence of both cervix and uterus; Z79.899 Other long term (current) drug therapy; Z79.1 Long term (current) use of non-steroidal anti-inflammatories (NSAID); Z79.82 Long term (current) use of aspirin; Z91.048 Other nonmedicinal substance allergy status; Z88.4 Allergy status to anesthetic agent; Z20.822 Contact with and (suspected) exposure to COVID-19; Z82.49 Family history of ischemic heart disease and other diseases of the circulatory system
CPT/HCPCS: 27447; 97110; 97161; 64999; 64448; 76942; 85025; 88300; 87635; 73560; G0378; C1776; C1713; J2250; J1100; J0690 ×2; J2405 ×2; J3010; J1650 ×2; J1170 ×2; J2795 ×2; J2370; J2704